=== PATIENT | male | born 1955 | race Hispanic/Latino ===

== ENCOUNTER 2018-07-24 22:58 | Emergency (ER) | payer OTHER ==
[~2018-07-24] VITALS: Ht 167.6 cm; Wt 93.4 kg
[~2018-07-24 22:58] MED LIST: ATORVASTATIN CA20 MG PO; HYDROCHLOROTHIA25 MG PO; LEVAQUIN500 MG PO; QUINAPRIL HCL20 MG PO; TYLENOL WITH C1 EACH PO
--- NOTE | 2018-07-24 23:35 | NUR ---
CIFUENTES INSERTED USING ASEPTIC TECHNIQUE, PATENT, DRAINING CLEAR LIGHT YELLOW URINE. NOTED TO HAVE APPROX 750 CC OUTPUT, CIFUENTES CLAMPED AT THIS TIME. PT REPORTS DECREASED PAIN/PRESSURE. CIFUENTES BAG EMPTIED AT THIS TIME.
[2018-07-24 23:51] LABS: BILIRUBIN,URINE NEGATIVE (NEGATIVE); CLARITY,URINE CLEAR (CLEAR); COLOR,URINE YELLOW (YELLOW); KETONES,URINE NEGATIVE (NEGATIVE); LEUKOCYTE ESTERASE ,URINE NEGATIVE (NEGATIVE); NITRITE,URINE NEGATIVE (NEGATIVE); PROTEIN,URINE DIPSTICK NEGATIVE (NEGATIVE); URINE UROBILINOGEN 0.2 mg/dL (0.2 - 1)
[2018-07-24 23:56] LABS: EPITHELIAL CELLS,URINE RARE /LPF; RBC,URINE 0-5 /HPF (0-5); WBC,URINE (MAN) 0-5 /HPF (0-5)
[2018-07-25 00:25] LABS: BILIRUBIN,URINE NEGATIVE (NEGATIVE); CLARITY,URINE CLEAR (CLEAR); COLOR,URINE YELLOW (YELLOW); KETONES,URINE NEGATIVE (NEGATIVE); LEUKOCYTE ESTERASE ,URINE NEGATIVE (NEGATIVE); NITRITE,URINE NEGATIVE (NEGATIVE); PROTEIN,URINE DIPSTICK NEGATIVE (NEGATIVE); URINE UROBILINOGEN 0.2 mg/dL (0.2 - 1)
[2018-07-25 00:32] LABS: EPITHELIAL CELLS,URINE RARE /LPF; RBC,URINE 0-5 /HPF (0-5); WBC,URINE (MAN) 0-5 /HPF (0-5)
[2018-07-25 00:51] VITALS: BP 139/73
--- NOTE | 2018-07-25 01:25 | NUR ---
DISCHARGE INSTRUCTIONS GIVEN AT THIS TIME WITH RX. PATIENT GIVEN LEG BAG AND WAS TAUGHT HOW TO USE AND CARE FOR, PT DEMONSTRATED USE. EDUCATED ABOUT IMPORTANCE OF FOLLOW UP, VERBALIZED UNDERSTANDING.
== END 2018-07-25 01:30 | disposition home or self-care (01) ==
LOC: ER 22:58
DX: R33.9 Retention of urine, unspecified (principal); N40.1 Benign prostatic hyperplasia with lower urinary tract symptoms; I10 Essential (primary) hypertension; E78.00 Pure hypercholesterolemia, unspecified
CPT/HCPCS: 51700; 81001; 99282

== ENCOUNTER → 2018-08-09 | Outpatient (CLI) | payer OTHER ==
--- NOTE | 2018-08-10 05:27 | Diagnostic Imaging Report ---
EXAMINATION: CT of the abdomen and pelvis without contrast. TECHNIQUE: Spiral CT images of the abdomen and pelvis were performed from the lung bases to the lesser trochanters. No intravenous contrast was given per renal stone protocol. Coronal and sagittal reformatted images were obtained. COMPARISON: CT abdomen with contrast 11/07/2015 CLINICAL HISTORY:Calculus of kidney DISCUSSION: ABSENCE OF INTRAVENOUS CONTRAST DECREASES SENSITIVITY FOR DETECTION OF FOCAL LESIONS AND VASCULAR PATHOLOGY. ABDOMEN/PELVIS: LOWER THORAX: Linear subsegmental atelectasis versus scarring in the lingula. Minimal bilateral lower lobe dependent atelectasis. Atherosclerotic calcification of the coronary arteries. HEPATOBILIARY: Borderline low attenuation of the hepatic parenchyma likely reflecting mild steatosis. No focal lesions. No intra or extrahepatic biliary ductal dilation. GALLBLADDER: Cholecystectomy clips. SPLEEN: No splenomegaly. PANCREAS: No focal masses or ductal dilatation. ADRENALS: No adrenal nodules. KIDNEYS/URETERS: 0.8 cm nonobstructing calculus in the left inferior pole (series 3, image 80). No other renal or any ureteral calculi. No hydronephrosis, hydroureter or evidence of obstruction. No renal contour abnormalities. No significant perinephric stranding. PELVIC ORGANS/BLADDER: Bladder is decompressed and there is a Harris catheter in place. Prostate is unremarkable. PERITONEUM/RETROPERITONEUM: No free air or fluid. LYMPH NODES: No intra-abdominal,retroperitoneal, pelvic or inguinal lymphadenopathy. VESSELS: Atherosclerotic calcification of the abdominal aorta and proximal iliac vessels. GI TRACT: No bowel dilation or evidence of obstruction. No pericolonic inflammatory changes. Descending and sigmoid colon diverticulosis, without diverticulitis. Appendix is well identified and normal in caliber. BONES AND SOFT TISSUES: No aggressive lytic lesions. Multilevel degenerative disc changes in the lumbosacral spine, worse at L2-L3, L3-L4 and L5-S1. Facet hypertrophy L4-L5 and L5-S1. Soft tissues are grossly unremarkable. IMPRESSION: 1. 0.8 cm nonobstructing calculus in the left inferior pole. No other renal or any ureteral calculi, hydronephrosis or obstruction. Signed by: Dr. Elie Astudillo M.D. on 08/10/2018 5:24 AM
== END ==
LOC: CT 16:44
PROVIDERS: ATTEND Urology
DX: N20.0 Calculus of kidney (principal)
CPT/HCPCS: 74176

== ENCOUNTER → 2018-09-14 | Day surgery (SDC) | payer OTHER ==
[2018-09-12 14:33] LABS: ANION GAP 12.7 mmol/L (8-16); BLOOD UREA NITROGEN 13 mg/dL (7-26); BUN/CREATININE RATIO 16 (6-25); CALCIUM 9.7 mg/dL (8.4-10.2); CARBON DIOXIDE 28 mmol/L (22-29); CHLORIDE 100 mmol/L (98-107); CREATININE, SERUM 0.83 mg/dL (0.72-1.25); EST GLOMERULAR FILTRATION RATE > 60 ML/MIN (60-); GLUCOSE 100 mg/dL (74-118); POTASSIUM 3.7 mmol/L (3.5-5.1); SODIUM 137 mmol/L (136-145)
[~2018-09-14] MED LIST changes: +B&O 60MG R/S 60 MG SUPP PR ONE; +DEXAMETHASONE SOD PHOS INJ 4 MG/ML VIAL ONE; +FENTANYL CITRATE/PF 100MCG/2 ML INJ ONE; +FLOMAX0.4 MG PO; +GENTAMICIN 80MG/NS 100 ML 100 ML IV ONE; +IOPAMIDOL 610MG/1ML 300 MG/ML VIAL IV ONE; +LEVOFLOXACIN 500MG/D5W 100ML 100 ML IV ONE; +LIDOCAINE HCL 2% LOCAL INJ 5 ML SDV VIAL INJ ONE; +MIDAZOLAM HCL 2 MG/2 ML VIAL ONE; +ONDANSETRON HCL INJ 2MG/ML 2ML 2 MG/ML VIAL ONE; +PROPOFOL IV EMULSION 10 MG/ML 20 ML VIAL ONE; +SEVOFLURANE INHAL SOLN 250 ML PEN BTL ONE
--- OUTSIDE RECORDS SUMMARY | 2018-09-14 08:33 | XMS REPORT ---
Author Author [facility] Address Unknown Phone Unavailable Care Team Providers Care Investment Advisor Name Role Phone VALDO PACK Unavailable Unavailable Problems This patient has no known problems. Allergies, Adverse Reactions, Alerts This patient has no known allergies or adverse reactions. Medications This patient has no known medications. Results Test Description Test Time Test Comments Text Results Atomic Results Result Comments CT ABDOMEN/PELVIS WO 2018-08-09 22:19:00 [place] [address] Patient Name: CELINE GRADY MR #: [id number] : 1955 Age/Sex: 63/M Req #: [id number] Adm Physician: Ordered by: VALDO PACK MD Report #: [id number] Location: CT Room/Bed: Procedure: [id number] CT/CT ABDOMEN/PELVIS WO Exam Date: 08/09/18 Exam Time: 1720 REPORT STATUS: Signed EXAMINATION: CT of the abdomen and pelvis without con trast. TECHNIQUE: Spiral CT images of the abdomen and pelvis were performed from the lung bases to the lesser trochanters. No intravenous contrast was given per renal stone protocol. Coronal and sagittal reformatted images were obtained. COMPARISON: CT abdomen with contrast 11/07/2015 CLINICAL HISTORY:Calculus of kidney DISCUSSION: ABSENCE OF INTRAVENOUS CONTRAST DECREASES SENSITIVITY FOR DETECTION OF FOCAL LESIONS AND VASCULAR PATHOLOGY. ABDOMEN/PELVIS: LOWER THORAX: Linear subsegmental atelectasis versus scarring in the lingula. Minimal bilateral lower lobe dependent atelectasis. Atherosclerotic calcification of the coronary arteries. HEPATOBILIARY: Borderline low attenuation of the hepatic parenchyma likely reflecting mild steatosis. No focal lesions. No intra or extrahepatic biliary ductal dilation. GALLBLADDER: Cholecystectomy clips. SPLEEN: No splenomegaly. PANCREAS: No focal masses or ductal dilatation. ADR ENALS: No adrenal nodules. KIDNEYS/URETERS: 0.8 cm nonobstructing calculus in the left inferior pole (series 3, image 80). No other renal or any ureteral calculi. No hydronephrosis, hydroureter or evidence of obstruction. No renal contour abnormalities. No significant perinephric stranding. PELVIC ORGANS/BLADDER: Bladder is decompressed and there is a Harris catheter in place. Prostate is unremarkable. PERITONEUM/RETROPERITONEUM: No free air or fluid. LYMPH NODES: No intra-abdominal,retroperitoneal, pelvic or inguinal lymphadenopathy. VESSELS: Atherosclerotic calcification of the abdominal aorta and proximal iliac vessels. GI TRACT: No bowel dilation or evidence of obstruction. No pericolonic inflammatory changes. Descending and sigmoid colon diverticulosis, without diverticulitis. Appendix is well identified and normal in caliber. BONES AND SOFT TISSUES: No aggressive lytic lesions. Multilevel degenerative disc changes in the lumbosacral spine, worse at L2-L3, L3-L4 and L5-S1. Facet hypertrophy L4-L5 and L5-S1. Soft tissues are grossly unremarkable. IMPRESSION: 1. 0.8 cm nonobstructing calculus in the left inferior pole. No other renal or any ureteral calculi, hydronephrosis or obstruction. Signed by: Dr. Hua Astudillo M.D. on 08/10/2018 5:24 AM Dictated By: HUA ASTUDILLO MD 3 Transcribed By: JUNI on 08/10/18523 COPY TO: VALDO PACK MD
[2018-09-14 09:13] LABS: BASOPHILS # (AUTO) 0.1 (0.0-0.1); BASOPHILS % 1.3 % (0.0-1.0); EOSINOPHILS # (AUTO) 0.2 (0.0-0.4); HEMATOCRIT 49.4 % (38.2-49.6); HEMOGLOBIN 17.6 g/dL (14.0-18.0); LYMPHOCYTES # (AUTO) 2.6 (1.0-3.2); LYMPHOCYTES % 57.2 % (18.0-39.1); MEAN CORPUSCULAR HGB CONC 35.6 g/dL (31-35); MONOCYTES # (AUTO) 0.4 (0.2-0.8); MONOCYTES % 9.1 % (4.4-11.3); NEUTROPHILS # (AUTO) 1.3 (2.1-6.9); NEUTROPHILS % 27.2 % (38.7-80.0); PLATELET COUNT 246 x10e3/uL (140-360); RED BLOOD COUNT 5.68 x10e6/uL (4.3-5.7); RED CELL DISTRIBUTION WIDTH 12.3 % (11.7-14.4)
[2018-09-14 09:35] LABS: ALANINE AMINOTRANSFERASE 40 IU/L (0-55); ALBUMIN 3.8 g/dL (3.5-5.0); ALKALINE PHOSPHATASE 70 IU/L (40-150); ANION GAP 11.9 mmol/L (8-16); BLOOD UREA NITROGEN 13 mg/dL (7-26); BUN/CREATININE RATIO 15 (6-25); CALCIUM 9.3 mg/dL (8.4-10.2); CARBON DIOXIDE 28 mmol/L (22-29); CHLORIDE 101 mmol/L (98-107); CREATININE, SERUM 0.89 mg/dL (0.72-1.25); EST GLOMERULAR FILTRATION RATE > 60 ML/MIN (60-); GLUCOSE 123 mg/dL (74-118); POTASSIUM 3.9 mmol/L (3.5-5.1); SODIUM 137 mmol/L (136-145)
--- NOTE | 2018-09-14 11:21 | Diagnostic Imaging Report ---
Abdomen, three views. History: Preoperative. Findings: The intestinal gas pattern is nonobstructive. There no masses or abnormal calcifications. There are clips in the right upper quadrant from a prior cholecystectomy. The osseous structures reveal degenerative changes of the spine. IMPRESSION: No acute abdominal abnormality. Signed by: Dr. Sanya Piña DO on 09/14/2018 11:18 AM
[2018-09-14 11:50] VITALS: BP 114/76
--- NOTE | 2018-10-28 03:43 | Operative Report ---
DATE OF PROCEDURE: 09/14/2018 SURGEON: Wayne Little MD PREOPERATIVE DIAGNOSES: 1. Obstructive benign prostatic hypertrophy. 2. Incomplete bladder emptying. POSTOPERATIVE DIAGNOSES: 1. Obstructive benign prostatic hypertrophy. 2. Incomplete bladder emptying. OPERATIONS PERFORMED: 1. Cystourethroscopy with bilateral ureteral catheterization and retrograde ureteropyelography (separate procedure performed to evaluate the upper tract in light of incomplete bladder emptying). 2. Interpretation of retrograde ureteropyelography. 3. Supervision of fluoroscopy, no radiologist present. 4. Cystourethroscopy with transurethral implantation of four UroLift implants (separate procedure performed for the obstructive BPH). ANESTHESIA: General. COMPLICATIONS: None. CLINICAL SUMMARY: Raymond Stockton is a 63-year-old man with the above preoperative diagnosis. The patient has had a history of urinary retention. He has an 8 mm left lower pole stone and is pending ESWL. He was brought for the above procedure. He is aware of the risks of bleeding, infection, injury to adjacent structures, need for additional procedures and elected to proceed. OPERATIVE PROCEDURE IN DETAIL: Informed consent was verified, Raymond Stockton was properly identified and taken to the operating room, placed on the cystoscopy table in supine position. Anesthesia was uneventfully begun. The patient was then carefully and gently repositioned in the dorsal lithotomy position with all pressure points well padded. His genitalia were prepared and draped in usual sterile fashion. The cystoscope sheath with visual obturator in place was atraumatically inserted into the patient's urethra, it was guided down unremarkably the urethra through the relatively unremarkable sphincteric region into the patient's prostate bed, which was significant for trilobar prostatic hypertrophy with kissing lateral lobes and a ball-valving intravesical median lobe. Panendoscopy of the bladder revealed trabeculations, but no tumors no stones, and no diverticula, normally positioned and configured, ureteral orifices were identified. An 8-Kazakh catheter was used to cannulate each ureter and retrograde ureteral pyelograms were performed. Interpretation of retrograde ureteropyelography contrast was instilled in retrograde fashion bilaterally. There was a stone in the lower pole calyx on the left hand side. This exhibited also filling defect on retrograde injection of contrast. The both ureteral orifices were displaced in a cephalad fashion consistent with a rather large prostate. There was an indentation at the base of the bladder caused by the median lobe of the prostate, which seemed rather prominent. Unobstructed drainage was observed bilaterally fluoroscopically. There was mild fullness of both distal ureters. The bladder was drained. The 20-Kazakh cystoscope was atraumatically placed with visual obturator. We then deployed four UroLift implants. They were deployed anterolaterally, two deployed anterolaterally on either side at 1.5 cm distal to the bladder neck and two were deployed anterolaterally on either side at the level of the verumontanum. This did create a continuous anterior channel which was open. Nevertheless, the patient still has a ball-valving median lobe, but it seems as if the channel we created is anterior to this median lobe and we hope it will improve his urination and possibly avoid the need for transurethral resection of the prostate at this time. Due to the patient's prostatic anatomy, I am fairly convinced that at some point in the future, a proper transurethral resection of the prostate or similar-sized procedure will be required. The patient's bladder was drained. Cystoscope was withdrawn. Belladonna and opium suppository were placed revealing a 40 g prostate that is smooth, nonfluctuant without any nodules. The patient was then uneventfully reversed from anesthesia and taken to recovery room in stable condition. There were no complications to the procedure. He tolerated the procedure well. Explicit postoperative instructions were given and we will follow the patient up in the office at which point in time we will perform uroflowmetry and bladder ultrasonography. At some point, the patient will also require a left ESWL. Wayne Little MD [place]/MODL /[id number]
== END | disposition home or self-care (01) ==
LOC: OR 08:24
PROVIDERS: ATTEND Urology
DX: N40.1 Benign prostatic hyperplasia with lower urinary tract symptoms (principal); N13.8 Other obstructive and reflux uropathy; R39.14 Feeling of incomplete bladder emptying; N20.0 Calculus of kidney; N32.89 Other specified disorders of bladder; Q55.22 Retractile testis; N47.5 Adhesions of prepuce and glans penis; N47.1 Phimosis; N32.81 Overactive bladder; N52.9 Male erectile dysfunction, unspecified; E66.9 Obesity, unspecified; I10 Essential (primary) hypertension; Z01.810 Encounter for preprocedural cardiovascular examination; Z01.812 Encounter for preprocedural laboratory examination; Z68.34 Body mass index [BMI] 34.0-34.9, adult
CPT/HCPCS: 52005; C9740; 36415; 74018; 74420; 80048; 80053; 83970; 84550; 85025; 93005; J1100; J1580; J1956; J2001; J2250; J2405; J3010; L8699

== ENCOUNTER → 2018-09-30 | Day surgery (SDC) | payer OTHER ==
--- NOTE | 2018-09-27 12:43 | Diagnostic Imaging Report ---
Exam: KUB - 2 views Clinical History: Renal calculi Comparison: Abdomen and pelvis CT of 08/09/2018 Findings: Calcific density projecting over the lower pole of the left kidney measures up to 6 mm and corresponds with area of a small stone seen on CT of 08/09/2018. No other renal calculi identified. Nonobstructive bowel gas pattern. Status post cholecystectomy. Degenerative changes of the visualized spine. Impression: Left kidney lower pole 6 mm stone. No other renal calculi identified. Signed by: Christian Hassan MD on 09/27/2018 12:40 PM
[~2018-09-30] MED LIST changes: -B&O 60MG R/S 60 MG SUPP PR ONE; +CEFTRIAXONE SOD 1 GM/NS 50 ML 50 ML IV ONE; +EPHEDRINE SULFATE INJ 50 MG/ML VIAL ONE; -FENTANYL CITRATE/PF 100MCG/2 ML INJ ONE; -GENTAMICIN 80MG/NS 100 ML 100 ML IV ONE; +HYDROMORPHONE 2MG/ML 2 MG/ML ML ONE; -IOPAMIDOL 610MG/1ML 300 MG/ML VIAL IV ONE; -LEVOFLOXACIN 500MG/D5W 100ML 100 ML IV ONE
[2018-09-30 09:00] VITALS: BP 136/81
--- NOTE | 2018-09-30 14:57 | Operative Report ---
DATE OF PROCEDURE: 09/30/2018 SURGEON: Wayne Little MD PREOPERATIVE DIAGNOSIS: Left nephrolithiasis. POSTOPERATIVE DIAGNOSIS: Left nephrolithiasis. OPERATION PERFORMED: 1. Staged left-sided extracorporeal shockwave lithotripsy. 2. Supervision of fluoroscopy, no radiologist present. ANESTHESIA: General. COMPLICATIONS: None. CLINICAL SUMMARY: Mr. Stockton is a 63-year-old man with left nephrolithiasis. He has undergone cystoscopy with retrograde pyelograms and UroLift procedure. He does have a median lobe in place, but despite the median lobe, the patient's urination is significantly improved following the above procedure. He is brought for lithotripsy. He is aware of the risks of bleeding, infection, injury to adjacent structures, need for additional procedures and elected to proceed. OPERATIVE PROCEDURE IN DETAIL: Informed consent was verified. Raymond Stockton was properly identified, taken to the operating room, placed on the lithotripsy table in supine position. Anesthesia was uneventfully begun. The patient's left lower pole nephrolithiasis was localized with biplanar fluoroscopy. A total of 3000 shocks were delivered with excellent fragmentation. The patient was then uneventfully reversed from anesthesia and taken to recovery room in stable condition. There were no complications of the procedure. He tolerated the procedure well. Expressive postop instructions were given. We will follow him up in the office, at which point in time, we will perform uroflowmetry and bladder ultrasonography to evaluate his postoperative result following his UroLift procedure. Wayne Little MD [place]/MODL /[id number]
== END | disposition home or self-care (01) ==
LOC: OR 05:00
PROVIDERS: ATTEND Urology
DX: N20.0 Calculus of kidney (principal); I10 Essential (primary) hypertension; K21.9 Gastro-esophageal reflux disease without esophagitis
CPT/HCPCS: 50590; 74018; J0696; J1100; J1170; J2001; J2250; J2405; J2704

== ENCOUNTER → 2019-01-10 | Outpatient (CLI) | payer OTHER ==
[~2019-01-10] MED LIST changes: -CEFTRIAXONE SOD 1 GM/NS 50 ML 50 ML IV ONE; -DEXAMETHASONE SOD PHOS INJ 4 MG/ML VIAL ONE; -EPHEDRINE SULFATE INJ 50 MG/ML VIAL ONE; -HYDROMORPHONE 2MG/ML 2 MG/ML ML ONE; -LIDOCAINE HCL 2% LOCAL INJ 5 ML SDV VIAL INJ ONE; -MIDAZOLAM HCL 2 MG/2 ML VIAL ONE; -ONDANSETRON HCL INJ 2MG/ML 2ML 2 MG/ML VIAL ONE; -PROPOFOL IV EMULSION 10 MG/ML 20 ML VIAL ONE; -SEVOFLURANE INHAL SOLN 250 ML PEN BTL ONE
--- NOTE | 2019-01-10 10:48 | Diagnostic Imaging Report ---
Exam: KUB - 2 views Indication: Renal calculi Comparison: KUB of 09/27/2018 Findings: Again seen is a left lower pole renal calculus which now measures approximately 5 mm. No other renal calculi identified. Status post cholecystectomy. Nonobstructive bowel gas pattern. No free air. Fiducials in the prostate. Impression: 5 mm left lower pole renal calculus. Signed by: Christian Hassan MD on 01/10/2019 10:45 AM
== END ==
LOC: RAD 09:47
PROVIDERS: ATTEND Urology
DX: N20.0 Calculus of kidney (principal)
CPT/HCPCS: 74018

== ENCOUNTER → 2019-02-01 | Outpatient (CLI) | payer OTHER ==
--- NOTE | 2019-02-01 11:34 | Diagnostic Imaging Report ---
EXAM: CT Abdomen and Pelvis WITHOUT intravenous contrast INDICATION: Renal calculi COMPARISON: KUB of 01/10/2019 TECHNIQUE: Abdomen and pelvis were scanned utilizing a multidetector helical scanner from the lung base to the pubic symphysis without administration of IV contrast. Coronal and sagittal reformations were obtained. IV CONTRAST: None ORAL CONTRAST: Water COMPLICATIONS: None RADIATION DOSE: Total DLP: 746.3 mGy*cm Dose modulation, iterative reconstruction, and/or weight based adjustment of the mA/kV was utilized to reduce the radiation dose to as low as reasonably achievable. FINDINGS: LOWER THORAX: Scattered coronary artery atherosclerotic calcifications. HEPATOBILIARY: Diffuse hepatic steatosis. No focal liver lesion. Status post cholecystectomy. SPLEEN: No splenomegaly. PANCREAS: No focal masses or ductal dilatation. ADRENALS: No adrenal nodules. KIDNEYS/URETERS: 5 mm left lower pole nonobstructive renal calculus. No hydronephrosis or solid mass lesions. PELVIC ORGANS/BLADDER: Radiopaque prostate fiducials PERITONEUM / RETROPERITONEUM: No free air or fluid. LYMPH NODES: No lymphadenopathy. VESSELS: Scattered atherosclerotic calcifications of the nonaneurysmal abdominal aorta and major branches. GI TRACT: Diverticulosis without CT evidence of diverticulitis. No abnormal bowel thickening. No bowel obstruction. BONES AND SOFT TISSUES: No acute osseous injury. No suspicious lytic or blastic lesions. Grade 1 retrolisthesis at L3-4. Degenerative changes of the visualized spine. IMPRESSION: Left lower pole 5 mm nonobstructive renal calculus. No hydronephrosis. Diffuse hepatic steatosis. Scattered atherosclerotic arterial calcifications including of the coronary arteries. Signed by: Christian Hassan MD on 02/01/2019 11:31 AM
== END ==
LOC: CT 09:12
PROVIDERS: ATTEND Urology
DX: N20.0 Calculus of kidney (principal)
CPT/HCPCS: 74176

== ENCOUNTER → 2019-05-31 | Day surgery (SDC) | payer OTHER ==
[2019-05-24 13:43] LABS: ANION GAP 12.5 mmol/L (8-16); BLOOD UREA NITROGEN 13 mg/dL (7-26); BUN/CREATININE RATIO 16 (6-25); CALCIUM 8.9 mg/dL (8.4-10.2); CARBON DIOXIDE 26 mmol/L (22-29); CHLORIDE 102 mmol/L (98-107); CREATININE, SERUM 0.83 mg/dL (0.72-1.25); EST GLOMERULAR FILTRATION RATE > 60 ML/MIN (60-); GLUCOSE 161 mg/dL (74-118); POTASSIUM 3.5 mmol/L (3.5-5.1); SODIUM 137 mmol/L (136-145)
--- NOTE | 2019-05-24 13:51 | Diagnostic Imaging Report ---
EXAM: ABDOMEN-1VIEW (KUB) DATE: 05/24/2019 12:52 PM INDICATION: Preoperative evaluation COMPARISON: CT abdomen/pelvis from 02/01/2019 FINDINGS: Bowel gas pattern appears nonobstructive. There is a 5 mm calcification projecting over the inferior pole of the left renal shadow. No other radiographic abdomen renal calculi are identified. Radiopaque fiducial markers are noted at the level of the prostate. No other abnormal intra-abdominal calcification is appreciated. There are multilevel degenerative changes of the visualized spine. The surrounding soft tissues are unremarkable. IMPRESSION: 5 mm left lower renal calculus, as noted on the prior CT examination. Signed by: Dr. Seth Joe MD on 05/24/2019 1:48 PM
[~2019-05-31] MED LIST changes: +ACETAMINOPHEN 1000 MG/100 ML IV ONE; +B&O 60MG R/S 60 MG SUPP PR ONE; +CEFTRIAXONE SOD 1 GM/NS 50 ML 50 ML IV ONE; +DEXAMETHASONE SOD PHOS INJ 4 MG/ML VIAL ONE; +EPHEDRINE SULFATE INJ 50 MG/ML VIAL ONE; +FENTANYL CITRATE/PF 100MCG/2 ML INJ ONE; +FINASTERIDE5 MG PO; +IOPAMIDOL 300MG/ML 50ML INFUS..BTL IV ONE; +LIDOCAINE HCL 2% LOCAL INJ 5 ML SDV VIAL INJ ONE; +MIDAZOLAM HCL 2 MG/2 ML VIAL ONE; +ONDANSETRON HCL INJ 2MG/ML 2ML 2 MG/ML VIAL ONE; +PROPOFOL IV EMULSION 10 MG/ML 20 ML VIAL ONE; +SEVOFLURANE INHAL SOLN 250 ML PEN BTL ONE
[2019-05-31 09:40] VITALS: BP 122/78
--- NOTE | 2019-05-31 15:13 | Operative Report ---
DATE OF PROCEDURE: 05/31/2019 SURGEON: Wayne Little MD PREOPERATIVE DIAGNOSES: 1. Left nephrolithiasis. 2. Benign prostatic hypertrophy. POSTOPERATIVE DIAGNOSES: 1. Left nephrolithiasis. 2. Benign prostatic hypertrophy. OPERATIONS PERFORMED: 1. Left-sided extracorporeal shockwave lithotripsy (separate staged procedure as part of a multistage process in managing the patient's urolithiasis). 2. Cystourethroscopy with bilateral ureteral catheterization and retrograde ureteropyelography (separate procedure performed to evaluate the lower and upper urinary tract in light of the long-standing benign prostatic hypertrophy). 3. Interpretation of retrograde ureteropyelography. 4. Supervision of fluoroscopy, no radiologist present. ANESTHESIA: General. COMPLICATIONS: None. CLINICAL SUMMARY: Raymond Stockton is a 64-year-old man with prostatism. He has undergone UroLift implant procedure with improvement. The patient has a stone and he is brought for management. He is aware of the risks of bleeding, infection, injury to adjacent structures, need for additional procedures and elected to proceed. OPERATIVE PROCEDURE IN DETAIL: Informed consent was verified. Raymond Stockton was properly identified and taken to the operating room, placed on the lithotripsy table in supine position. Anesthesia was uneventfully begun. The patient's left nephrolithiasis was localized with biplanar fluoroscopy. A total of 3000 shocks were delivered to the lower pole stone with excellent fragmentation. The patient was then carefully gently repositioned in the dorsal lithotomy position with all pressure points well padded. His genitalia were prepared and draped in usual sterile fashion. The 22.5-Kyrgyz cystoscope sheath with visual obturator in place was atraumatically inserted into the patient's urethra and it was guided down to the unremarkable urethra, passed a normal sphincteric region through the prostate bed, which was significant for trilobar prostatic hypertrophy with kissing lateral lobes and a median lobe that was small. Despite all this, there was a continuous anterior channel, albeit small, as a result of the prior UroLift procedure. We entered the patient's bladder. Panendoscopy revealed grade 1 trabeculations, but no tumors, no stones, no diverticula. Normally positioned configured ureteral orifices were identified. We were able to negotiate around median lobe and cannulated both ureteral orifices with an 8-Kyrgyz cone-tipped catheter and retrograde ureteral pyelograms were performed. Interpretation of retrograde ureteropyelography contrast was instilled in retrograde fashion bilaterally. The right side was unremarkable. There were no tumors, no stones, no diverticula, and unobstructed drainage was observed fluoroscopically. The left side exhibited filling defects in the lower pole corresponding to this fragmented stone particles as well as blood clots. There was no hydronephrosis and unobstructed drainage was observed bilaterally fluoroscopically, some J-hooking was noted. The patient's bladder was drained. Cystoscope was withdrawn. Belladonna and opium suppository were placed revealing a 40 g prostate that is smooth, nonfluctuant without any nodules. The patient was then uneventfully reversed from anesthesia and taken to recovery in stable condition. There were no complications to procedure. He tolerated the procedure well. PLANS: Plans will be to follow the patient up in the office. Metabolic stone workup will be performed and followed up. The patient at some point in the future may require transurethral resection of the prostate for his prostatism. Wayne MD Anabel [place]/MODL /[id number] cc: Elie Hayes MD
== END | disposition home or self-care (01) ==
LOC: OR 05:21
PROVIDERS: ATTEND Urology
DX: N20.0 Calculus of kidney (principal); N40.1 Benign prostatic hyperplasia with lower urinary tract symptoms; R33.8 Other retention of urine; R39.14 Feeling of incomplete bladder emptying; N52.9 Male erectile dysfunction, unspecified; E66.9 Obesity, unspecified; N47.5 Adhesions of prepuce and glans penis; N47.1 Phimosis; N32.81 Overactive bladder; I10 Essential (primary) hypertension; E78.00 Pure hypercholesterolemia, unspecified; K21.9 Gastro-esophageal reflux disease without esophagitis; Z68.34 Body mass index [BMI] 34.0-34.9, adult; Z01.810 Encounter for preprocedural cardiovascular examination; Z01.812 Encounter for preprocedural laboratory examination; Z01.818 Encounter for other preprocedural examination
CPT/HCPCS: 36415; 50590; 52005; 74018; 74420; 80048; 93005; C1758; J0131; J0696; J1100; J2001; J2250; J2405; J2704; J3010; Q9967

== ENCOUNTER → 2019-08-14 | Outpatient (CLI) | payer OTHER ==
[~2019-08-14] MED LIST changes: -ACETAMINOPHEN 1000 MG/100 ML IV ONE; -B&O 60MG R/S 60 MG SUPP PR ONE; -CEFTRIAXONE SOD 1 GM/NS 50 ML 50 ML IV ONE; -DEXAMETHASONE SOD PHOS INJ 4 MG/ML VIAL ONE; -EPHEDRINE SULFATE INJ 50 MG/ML VIAL ONE; -FENTANYL CITRATE/PF 100MCG/2 ML INJ ONE; -IOPAMIDOL 300MG/ML 50ML INFUS..BTL IV ONE; -LIDOCAINE HCL 2% LOCAL INJ 5 ML SDV VIAL INJ ONE; -MIDAZOLAM HCL 2 MG/2 ML VIAL ONE; -ONDANSETRON HCL INJ 2MG/ML 2ML 2 MG/ML VIAL ONE; -PROPOFOL IV EMULSION 10 MG/ML 20 ML VIAL ONE; -SEVOFLURANE INHAL SOLN 250 ML PEN BTL ONE
--- NOTE | 2019-08-14 11:06 | Diagnostic Imaging Report ---
Abdomen, 1 view. History: Renal calculus. Comparison: 05/24/2019. Findings: Air is scattered throughout nondilated small and large bowel. 5 mm calcification is again seen projected over the lower pole of the left kidney. Post cystectomy clips are present in the right upper quadrant. Metallic markers are noted within the prostate. The osseous structures are intact. IMPRESSION: Left renal calculus without change. Signed by: Antoine Crawford on 08/14/2019 11:03 AM
== END ==
LOC: RAD 10:09
PROVIDERS: ATTEND Urology
DX: N20.0 Calculus of kidney (principal)
CPT/HCPCS: 74018

== ENCOUNTER → 2020-01-05 | Day surgery (SDC) | payer OTHER ==
[2020-01-02 10:31] LABS: BLOOD UREA NITROGEN 13 mg/dL (7-26); BUN/CREATININE RATIO 14 (6-25); CALCIUM 9.3 mg/dL (8.4-10.2); CARBON DIOXIDE 27 mmol/L (22-29); CHLORIDE 102 mmol/L (98-107); EST GLOMERULAR FILTRATION RATE > 60 ML/MIN (60-); GLUCOSE 107 mg/dL (74-118); SODIUM 137 mmol/L (136-145)
--- NOTE | 2020-01-02 11:04 | Diagnostic Imaging Report ---
Abdomen, 1 view. History: Renal calculus. Preop for surgery Comparison: 08/14/2019. 05/24/2019. Findings: Air is scattered throughout nondilated small and large bowel. 5 mm calcification is again seen projected over the lower pole of the left kidney. Cholecystectomy clips are present in the right upper quadrant. Metallic markers are noted within the prostate. The osseous structures are intact. IMPRESSION: Left renal calculus without change. Signed by: Dr. Damien Martinez M.D. on 01/02/2020 11:01 AM
[~2020-01-05] MED LIST changes: +B&O 60MG R/S 60 MG SUPP PR ONE; +CEFTRIAXONE SOD 1 GM/NS 50 ML 50 ML IV ONE; +DEXAMETHASONE SOD PHOS INJ 4 MG/ML VIAL ONE; +EPHEDRINE SULFATE INJ 50 MG/ML VIAL ONE; +FENTANYL CITRATE/PF 100MCG/2 ML INJ ONE; +IOPAMIDOL 300MG/ML 50ML INFUS..BTL IV ONE; +LIDOCAINE HCL 2% LOCAL INJ 5 ML SDV VIAL INJ ONE; +METFORMIN HCL500 MG PO; +MIDAZOLAM HCL 2 MG/2 ML VIAL ONE; +ONDANSETRON HCL INJ 2MG/ML 2ML 2 MG/ML VIAL ONE; +PROPOFOL IV EMULSION 10 MG/ML 20 ML VIAL ONE; +SEVOFLURANE INHAL SOLN 250 ML PEN BTL ONE
[2020-01-05 12:08] VITALS: BP 147/78
--- NOTE | 2020-01-06 00:09 | Operative Report ---
DATE OF PROCEDURE: 01/05/2020 SURGEON: Wayne Little MD PREOPERATIVE DIAGNOSIS: Left nephrolithiasis. POSTOPERATIVE DIAGNOSIS: Left nephrolithiasis. OPERATION PERFORMED: 1. Staged left-sided extracorporeal shockwave lithotripsy. 2. Supervision of fluoroscopy, no radiologist present. ANESTHESIA: General. COMPLICATIONS: None. CLINICAL SUMMARY: Raymond Stockton is a 64-year-old man with persistent urolithiasis. He also has BPH and is pending transurethral resection of the prostate with cystoscopy and retrograde pyelograms. He is brought to the operating room to manage his stone. He is aware of the risks of bleeding, infection, injury to adjacent structures, need for additional procedures, and elected to proceed. OPERATIVE PROCEDURE IN DETAIL: Informed consent was verified. Raymond Stockton was properly identified, taken to the operating room, placed on the lithotripsy table in supine position. Anesthesia was uneventfully begun. The patient's left nephrolithiasis was localized with biplanar fluoroscopy. A total of 3000 shocks were delivered with fragmentation noted. The patient was then uneventfully reversed from anesthesia and taken to recovery room in stable condition. There were no complications the procedure. He tolerated the procedure well. Explicit postop instructions were given. We will plan on returning the patient to the operating room for cystoscopy with transurethral resection of prostate and retrograde pyelograms. Wayne Little MD [place]/MODL /[id number]
== END | disposition home or self-care (01) ==
LOC: OR 07:39
PROVIDERS: ATTEND Urology
DX: N20.0 Calculus of kidney (principal); N40.0 Benign prostatic hyperplasia without lower urinary tract symptoms; E11.9 Type 2 diabetes mellitus without complications; I10 Essential (primary) hypertension; E78.5 Hyperlipidemia, unspecified; K21.9 Gastro-esophageal reflux disease without esophagitis; Z01.810 Encounter for preprocedural cardiovascular examination; Z01.812 Encounter for preprocedural laboratory examination; Z01.818 Encounter for other preprocedural examination; Z11.59 Encounter for screening for other viral diseases; Z79.84 Long term (current) use of oral hypoglycemic drugs
CPT/HCPCS: 36415 ×2; 50590; 74018; 80048; 82948; 93005; J0696; J1100; J2001; J2250; J2405; J2704; J3010; U0002

== ENCOUNTER 2020-01-15 05:34 | Inpatient (IN) | payer OTHER ==
[2020-01-11 14:55] LABS: BASOPHILS # (AUTO) 0.1 (0.0-0.1); BASOPHILS % 0.9 % (0.0-1.0); EOSINOPHILS # (AUTO) 0.1 (0.0-0.4); EOSINOPHILS % 2.6 % (0.0-6.0); HEMOGLOBIN 15.8 g/dL (14.0-18.0); LYMPHOCYTES # (AUTO) 3.1 (1.0-3.2); LYMPHOCYTES % 56.6 % (18.0-39.1); MEAN CORPUSCULAR HEMOGLOBIN 31.2 pg (28-32); MEAN CORPUSCULAR HGB CONC 34.3 g/dL (31-35); MEAN CORPUSCULAR VOLUME 90.7 fL (81-99); MONOCYTES # (AUTO) 0.5 (0.2-0.8); MONOCYTES % 8.4 % (4.4-11.3); NEUTROPHILS # (AUTO) 1.7 (2.1-6.9); NEUTROPHILS % 31.1 % (38.7-80.0); PLATELET COUNT 250 x10e3/uL (140-360); RED BLOOD COUNT 5.07 x10e6/uL (4.3-5.7); RED CELL DISTRIBUTION WIDTH 12.1 % (11.7-14.4)
[2020-01-11 15:17] LABS: ANION GAP 13.5 mmol/L (8-16); BLOOD UREA NITROGEN 14 mg/dL (7-26); BUN/CREATININE RATIO 16 (6-25); CALCIUM 9.2 mg/dL (8.4-10.2); CARBON DIOXIDE 27 mmol/L (22-29); CHLORIDE 102 mmol/L (98-107); CREATININE, SERUM 0.88 mg/dL (0.72-1.25); EST GLOMERULAR FILTRATION RATE > 60 ML/MIN (60-); GLUCOSE 161 mg/dL (74-118); POTASSIUM 3.5 mmol/L (3.5-5.1); SODIUM 139 mmol/L (136-145)
[~2020-01-15] VITALS: Ht 165.1 cm; Wt 88.0 kg
[~2020-01-15 05:34] MED LIST changes: -B&O 60MG R/S 60 MG SUPP PR ONE; -CEFTRIAXONE SOD 1 GM/NS 50 ML 50 ML IV ONE; -DEXAMETHASONE SOD PHOS INJ 4 MG/ML VIAL ONE; -EPHEDRINE SULFATE INJ 50 MG/ML VIAL ONE; -FENTANYL CITRATE/PF 100MCG/2 ML INJ ONE; -IOPAMIDOL 300MG/ML 50ML INFUS..BTL IV ONE; -LIDOCAINE HCL 2% LOCAL INJ 5 ML SDV VIAL INJ ONE; -MIDAZOLAM HCL 2 MG/2 ML VIAL ONE; -ONDANSETRON HCL INJ 2MG/ML 2ML 2 MG/ML VIAL ONE; -PROPOFOL IV EMULSION 10 MG/ML 20 ML VIAL ONE; -SEVOFLURANE INHAL SOLN 250 ML PEN BTL ONE
[2020-01-15] MEDS ORDERED: CEFTRIAXONE SOD 1 GM/NS 50 ML 50 ML IV ONE (06:19)
[2020-01-15] MEDS ORDERED: GENTAMICIN 80MG/NS 100 ML 200 ML IV ONE (06:19)
[2020-01-15] MEDS ORDERED: B&O 60MG R/S 60 MG SUPP PR ONE (06:34)
[2020-01-15] MEDS ORDERED: IOPAMIDOL 300MG/ML 50ML INFUS..BTL IV ONE (06:34)
[2020-01-15] MEDS ORDERED: SODIUM CHLORIDE 0.9% 1000ML 1,000 ML ONE (06:36)
[2020-01-15] MEDS ORDERED: DIPHENHYDRAMINE HCL 25 MG CAP PO PRN (09:00)
[2020-01-15] MEDS ORDERED: ONDANSETRON HCL INJ 2MG/ML 2ML 2 MG/ML VIAL IV PRN ×2 (09:00→22:00)
[2020-01-15] MEDS ORDERED: B&O 60MG R/S 60 MG SUPP PR PRN (09:00)
[2020-01-15] MEDS ORDERED: ACETAMINOPHEN/CODEINE 300MG - 30MG TAB PO PRN (09:00)
--- OUTSIDE RECORDS SUMMARY | 2020-01-15 09:30 | XMS REPORT | Continuity of Care Document ---
Author Author [facility] t Organization [facility] Address [address] [place] [address] Phone Unavailable Care Team Providers Care Product Sales Engineer Name Role Phone NONSTAFF PCP Unavailable HAMPEL, VALDO Attphys Unavailable Payers Payer Name Policy Type Policy Number Effective Date Expiration Date [employer] [id number] [facility] Problems Condition Name Condition Details Condition Category Status Onset Date Resolution Date Last Treatment Date Treating Clinician Comments Source Alcohol-induced acute pancreatitis Acute alcoholic pancreatitis Pro blem Active 2015-11-02 00:00:00 [facility] Duodenitis Duodenitis Problem Active 2015-11-02 00:00:00 [facility] Allergies, Adverse Reactions, Alerts This patient has no known allergies or adverse reactions. Medications Ordered Medication Name Filled Medication Name Start Date Stop Da te Current Medication? Ordering Clinician Indication Dosage Frequency Signature (SIG) Comments Components Source Atorvastatin Calcium 20 Mg Tablet Atorvastatin Calcium 20 Mg Tablet Yes 20 Today At 9:00PM [facility] Hydrochlorothiazide 25 Mg Tablet Hydrochlorothiazide 25 Mg Tablet Yes 12.5 Daily [facility] Quinapril Hcl 20 Mg Tablet Quinapril Hcl 20 Mg Tablet Yes 40 Daily [facility] Acetaminophen With Codeine (Tylenol With Codeine #3 Tablet) 1 Each Tablet, 300 Mg Oral Acetaminophen With Codeine (Tylenol With Codeine #3 Tablet) 1 Each Tablet, 300 Mg Oral 2016-03-04 00:00:00 No 300 Ever y 4 Hours [facility] Levofloxacin (Levaquin) 500 Mg Tablet, 500 Mg Oral Lev ofloxacin (Levaquin) 500 Mg Tablet, 500 Mg Oral 2016-03-04 00:00:00 No 500 D aily [facility] Procedures This patient has no known procedures. Encounters Start Date/Time End Date/Time Encounter Type Admission Type [facility] Care Department Encounter ID Source 2018-07-24 22:58:00 2018-07-25 01:30:00 Departed Emergency Room [facility] [id number] [facility] Results Test Description Test Time Test Comments Results Result Comments Source ABDOMEN-1VIEW (KUB) 2020-01-02 10:59:00 [facility] [address] [address] Patient Name: CELINE GRADY MR #: [id number] : 1955 Age/Sex: 64/M Req #: [id number] Adm Physician: Ordered by: VALDO PACK MD Report #: [id number] Location: OR Room/Bed: Procedure: [id number] DX/ABDOMEN-1VIEW (KUB) Exam Date: 01/02/20 Exam Time: 1000 REPORT STATUS: Signed Abdomen, 1 view. History: Renal calculus. Preop for surgery Comparison: 08/14/2019. 05/24/2019. Findings: Air is scattered throughout nondilated small and large bowel. 5 mm calcification is again seen projected over the lower pole of the left kid kathy. Cholecystectomy clips are present in the right upper quadrant. Metallic markers are noted within the prostate. The osseous structures are intact. IMPRESSION: Left renal calculus without change. Signed by: Dr. Damien Martinez M.D. on 01/02/2020 11:01 AM Dictated By: DAMIEN MARTINEZ MD, MD 110 Transcribed By: JUNI on 01/02/201100 COPY TO: VALDO PACK MD ABDOMEN-1VIEW (KUB) 2019-08-14 11:01:[address] [address] Patient Name: CELINE GRADY MR #: [id number] : 1955 Age/Sex: 64/M Req #: [id number] Adm Physician: Ordered by: VALDO PACK MD Report #: [id number] Location: [facility] Room/Bed: Procedure: [id number] DX/ABDOMEN-1VIEW (KUB) Exam Date: 08/14/19 Exam Time: 1036 REPORT STATUS: Signed Abdomen, 1 view. History: Renal calculus. Comparison: 05/24/2019. Findings: Air is scattered throughout nondilated small and large bowel. 5 mm calcification is again seen projected over the lower pole of the left kidney. Post cystectomy clips are present in the right upper quadrant. Metallic markers are noted within the prostate. The osseous structures are intact. IMPRESSION: Left renal calculus without change. Signed by: Antoine Crawford on 08/14/2019 11:03 AM Dictated By: ANTOINE CRAWFORD MD 110 Transcribed By: JUNI on 08/14/19 1103 COPY TO: VALDO PACK MD ABDOMEN-1VIEW (KUB) 2019-05-24 13:46:00 [address] [address] Patient Name: CELINE GRADY MR #: [id number] : 1955 Age/Sex: 64/M Req #: [id number] Adm Physician: Ordered by: VALDO PACK MD Report #: [id number] Location: OR Room/Bed: Procedure: [id number] DX/ABDOMEN-1VIEW (KUB) Exam Date: 05/24/19 Exam Time: 1325 REPORT STATUS: Signed EXAM: ABDOMEN-1VIEW (KUB) DATE: 05/24/2019 12:52 PM INDICATION: Preoperative evaluation COMPARISON: CT abdomen/pelvis from 02/01/2019 FINDINGS: Bowel gas pattern appears nonobstructive. There is a 5 mm calcification projecting over the inferior pole of the left renal shadow. No other radiographic abdomen renal calculi are identified. Radiopaque fiducial markers are noted at the level of the prostate. No other abnormal intra-abdominal calcification is appreciated. There are multilevel degenerative changes of the visualized spine. The surrounding soft tissues are unremarkable. IMPRESSION: 5 mm left l ower renal calculus, as noted on the prior CT examination. Signed by: Dr. Seth Joe MD on 05/24/2019 1:48 PM Dictated By: SETH JOE MD 1348 Transcribed By: JUNI on 05/24/19 1348 COPY TO: VALDO PACK MD CT ABDOMEN/PELVIS WO 2019-02-01 11:26:00 [address] [address] Patient Name: CELINE GRADY MR #: [id number] : 1955 Age/Sex: 63/M Req #: [id number] Adm Physician: Ordered by: VALDO PACK MD Report #: [id number] Location: CT Room/Bed: Procedure: [id number] CT/CT ABDOMEN/PELVIS WO Exam Date: 02/01/19 Exam Time: 0940 REPORT STATUS: Signed EXAM: CT Abdomen and Pelvis WITHOUT intravenous contrast INDICATION: Renal calculi COMPARISON: KUB of 01/10/2019 TECHNIQUE: Abdomen and pelvis were scanned utilizing a multidetector helical scanner from the lung base to the pubic symphysis without administration of IV contrast. Coronal and sagittal reformations were obtained. IV CONTRAST: None ORAL CONTRAST: Water COMPLICATIONS: None RADIATION DOSE: Total DLP: 746.3 mGy*cm Dose modulation, iterative reconstruction, and/or weight based adjustment of the mA/kV was utilized to reduce the radiation dose to as low as reasonably achievable. FINDINGS: LOWER THORAX: Scattered coronary artery atherosclerotic calcifications. HEPATOBILIARY: Diffuse hepatic steatosis. No focal liver lesion. Status post cholecystectomy. SPLEEN: No splenomegaly. PANCREAS: No focal masses or ductal dilatation. ADRENALS: No adrenal nodules. KIDNEYS/URETERS: 5 mm left lower pole nonobstructive renal calculus. No hydronephrosis or solid mass lesions. PELVIC ORGANS/BLADDER: Radiopaque prostate fiducials PERITONEUM / RETROPERITONEUM: No free air or fluid. LYMPH NODES: No lymphadenopathy. VESSELS: Scattered atherosclerotic calcifications of the nonaneurysmal abdominal aorta and major branches. GI TRACT: Diverticulosis without CT evidence of diverticulitis. No abnormal bowel thickening. No bowel obstruction. BONES AND SOFT TISSUES: No acute osseous injury. No suspicious lytic or blastic lesions. Grade 1 retrolisthesis at L3-4. Degenerative changes of the visualized spine. IMPRESSION: Left lower pole 5 mm nonobstructive renal calculus. No hydronephrosis. Diffuse hepatic steatosis. Scattered atherosclerotic arterial calcifications including of the coronary arteries. Signed by: Jabari Hernandez MD on 02/01/2019 11:31 AM Dictated By: JABARI HERNANDEZ MD 1131 Transcribed By: JUNI on 02/01/191 COPY TO: VALDO PACK MD ABDOMEN-1VIEW (KUB) 2019-01-10 10:43:00 [address] [address] Patient Name: CELINE GRADY MR #: [id number] : 1955 Age/Sex: 63/M Req #: [id number] Adm Physician: Ordered by: VALDO PACK MD Report #: [id number] Location: [facility] Room/Bed: Procedure: [id number] DX/ABDOMEN-1VIEW (KUB) Exam Date: 01/10/19 Exam Time: 0950 REPORT STATUS: Signed Exam: KUB - 2 views Indication: Renal calculi Comparison: KUB of 09/27/2018 Findings: Again seen is a left lower pole renal calculus which now measures approximately 5 mm. No other renal calculi identified. Status post cholecystectomy. Nonobstructive bowel gas pattern. No free air. Fiducials in the prostate. Impression: 5 mm left lower pole renal calculus. Signed by: Jabari Hernandez MD on 01/10/2019 10:45 AM Dictated By: JABARI HERNANDEZ MD 104 Transcribed By: JUNI on 01/10/19 104 COPY TO: VALDO PACK MD ABDOMEN-1VIEW (KUB) 2018-09-27 12:37:00 [address] [address] Patient Name: CELINE GRADY MR #: [id number] : 1955 Age/Sex: 63/M Req #: [id number] Adm Physician: Ordered by: VALDO PACK MD Report #: [id number] Location: OR Room/Bed: Procedure: [id number] DX/ABDOMEN-1VIEW (KUB) Exam Date: 09/27/18 Exam Time: 1135 REPORT STATUS: Signed Exam: KUB - 2 views Clinical History: Renal calculi Comparison: Abdomen and pelvis CT of 08/09/2018 Findings: Calcific density projecting over the lower pole of the left kidney measures up to 6 mm and corresponds with area of a small stone seen on CT of 08/09/2018. No other renal calculi identified. Nonobstructive bowel gas pattern. Status post cholecystectomy. Degenerative changes of the visualized spine. Impression: Left kidney lower pole 6 mm stone. No other renal calculi identified. Signed by: Jabari Hernandez MD on 09/27/2018 12:40 PM Dictated By: JABARI HERNANDEZ MD 1240 Transcribed By: JUNI on 09/27/18 1240 COPY TO: VALDO PACK MD ABDOMEN-1VIEW (KUB) 2018-09-14 11:16:00 [address] [address] Patient Name: CELINE GRADY MR #: [id number] : 1955 Age/Sex: 63/M Req #: [id number] Adm Physician: Ordered by: VALDO PACK MD Report #: [id number] Location: OR Room/Bed: Procedure: [id number] DX/ABDOMEN-1VIEW (KUB) Exam Date: 09/14/18 Exam Time: 914 REPORT STATUS: Signed Abdomen, three views. History: Preoperative. Findings: The intestinal gas pattern is nonobstructive. There no masses or abnormal calcifications. There are clips in the right upper quadrant from a prior cholecystectomy. The osseous structures reveal degenerative changes of the spine. IMPRESSION: No acute abdominal abnormality. Signed by: Dr. Ricardo Piña DO on 09/14/2018 11:18 AM Dictated By: RICARDO PIÑA DO 1118 Transcribed By: JUNI on 09/14/18 1118 COPY TO: VALDO PACK MD CT ABDOMEN/PELVIS WO 2018-08-09 22:19:00 [address] [address] Patient Name: CELINE GRADY MR #: [id number] : 1955 Age/Sex: 63/M Req #: [id number] Adm Physician: Ordered by: VALDO PACK MD Report #: [id number] Location: CT Room/Bed: Procedure: [id number] CT/CT ABDOMEN/PELVIS WO Exam Date: 08/09/18 Exam Time: 1720 REPORT STATUS: Signed EXAMINATION: CT of the abdomen and pelvis without contrast. TECHNIQUE: Spiral CT images of the abdomen [...] PANCREAS: No focal masses or ductal dilatation. ADRENALS: No adrenal nodules. KIDNEYS/URETERS: 0.8 cm nonobstructing [...] on 08/10/18523 COPY TO: VALDO PACK MD Urine WBC 2018-07-25 00:32:00 Test Item Urine WBC (test code = 5821-4) 0-5 0-5 [facility] [id number] 00:32:00* Test Item Value Reference Range Interpretation Comments Urine RBC (test code = 19437-8) 0-5 0-5 [facility] Ackffmvs5726-30-03 00:32:00* Test Item Value Reference Range Interpretation Comments Urine Bacteria (test code = 03291-0) NONE NONE [facility] Epithelial [id number] 00:32:00 * Test Item Value Reference Range Interpretation Comments Urine Epithelial Cells (test code = 63310-4) RARE NONE [facility] [id number] 00:26:00* Test Item Value Reference Range Interpretation Comments Urine Color (test code = 5778-6) YELLOW YELLOW [facility] Rosvuqf9070-67-21 00:26:00* Test Item Value Reference Range Interpretation Comments Urine Clarity (test code = 54944-3) CLEAR CLEAR [facility] Specific Zjfmiea0293-59-44 00:26:00 * Test Item Value Reference Range Interpretation Comments Urine Specific [place] (test code = 5811-5) 1.005 1.010-1.02 5 L [facility] [id number] 00:26:00* Test Item Value Reference Range Interpretation Comments Urine pH (test code = 47015-4) 5 5-7 [facility] Leukocyte Kvwraglr0642-15-43 00:26:00* Test Item Value Reference Range Interpretation Comments Urine Leukocyte Esterase (test code = 5799-2) NEGATIVE NEGATIVE [facility] Mpdzxcm4634-52-12 00:26:00* Test Item Value Reference Range Interpretation Comments Urine Nitrite (test code = 49587-1) NEGATIVE NEGATIVE [facility] [id number] 00:26:00* Test Item Value Reference Range Interpretation Comments Urine Protein (test code = 5804-0) NEGATIVE NEGATIVE [facility] Glucose (UA)2018-07-25 00:26:00* Test Item Value Reference Range Interpretation Comments Urine Glucose (UA) (test code = 2349-9) NEGATIVE NEGATIVE [facility] Owwkhkb3747-54-48 00:26:00* Test Item Value Reference Range Interpretation Comments Urine Ketones (test code = 53927-3) NEGATIVE NEGATIVE [facility] Ejhuebymsegc7445-64-17 00:26:00* Test Item Value Reference Range Interpretation Comments Urine Urobilinogen (test code = 68003-5) 0.2 0.2-1 [facility] Iakdwwfll1445-85-19 00:26:00* Test Item Value Reference Range Interpretation Comments Urine Bilirubin (test code = 1978-6) NEGATIVE NEGATIVE [facility] Rvchk8909-64-14 00:26:00* Test Item Value Reference Range Interpretation Comments Urine Blood (test code = 28274-0) 1+ NEGATIVE H [facility]
[2020-01-15 10:12] VITALS: BP 142/79
[2020-01-15 10:17] VITALS: BP 142/79
--- NOTE | 2020-01-15 10:30 | NUR ---
Patient report called from PACU at 0944 from [facility]. Patient arrived to unit at 1000. Patient AOx3, assessed, IV C/D/I in right forearm 20g. Patient has a [address] in [address] and it has 4 continous bags going. Patient was oriented to room, procedures, and plan of care. Patient verbalized understanding. Patient has no issues or needs at this time.
[2020-01-15] MEDS: DOCUSATE SODIUM 100 MG CAP PO SCH ×2 (11:15→16:08)
[2020-01-15] MEDS: SOD CHL 0.45%/POT CHL 20MEQ 1,000 ML IV SCH ×2 (11:15→19:04)
[2020-01-15] MEDS ORDERED: FENTANYL CITRATE/PF 100MCG/2 ML INJ ONE (12:42)
[2020-01-15] MEDS ORDERED: MIDAZOLAM HCL 2 MG/2 ML VIAL ONE (12:42)
[2020-01-15 12:58] LABS: BASOPHILS % 0.2 % (0.0-1.0); EOSINOPHILS % 0.2 % (0.0-6.0); HEMATOCRIT 46.3 % (38.2-49.6); HEMOGLOBIN 15.9 g/dL (14.0-18.0); LYMPHOCYTES # (AUTO) 1.1 (1.0-3.2); LYMPHOCYTES % 21.6 % (18.0-39.1); MEAN CORPUSCULAR HEMOGLOBIN 31.2 pg (28-32); MEAN CORPUSCULAR HGB CONC 34.3 g/dL (31-35); MEAN CORPUSCULAR VOLUME 90.8 fL (81-99); MONOCYTES # (AUTO) 0.1 (0.2-0.8); MONOCYTES % 1.4 % (4.4-11.3); NEUTROPHILS # (AUTO) 3.7 (2.1-6.9); NEUTROPHILS % 76.4 % (38.7-80.0); PLATELET COUNT 235 x10e3/uL (140-360); RED CELL DISTRIBUTION WIDTH 12.1 % (11.7-14.4)
[2020-01-15] MEDS ORDERED: SEVOFLURANE INHAL SOLN 250 ML PEN BTL ONE (13:02)
[2020-01-15] MEDS ORDERED: DEXAMETHASONE SOD PHOS INJ 4 MG/ML VIAL ONE (13:02)
[2020-01-15] MEDS ORDERED: PROPOFOL IV EMULSION 10 MG/ML 20 ML VIAL ONE (13:02)
[2020-01-15] MEDS ORDERED: ONDANSETRON HCL INJ 2MG/ML 2ML 2 MG/ML VIAL ONE (13:02)
[2020-01-15] MEDS ORDERED: LIDOCAINE HCL 2% LOCAL INJ 5 ML SDV VIAL INJ ONE (13:02)
[2020-01-15 13:20] LABS: ANION GAP 13.2 mmol/L (8-16); BLOOD UREA NITROGEN 13 mg/dL (7-26); BUN/CREATININE RATIO 14 (6-25); CALCIUM 8.4 mg/dL (8.4-10.2); CARBON DIOXIDE 23 mmol/L (22-29); CHLORIDE 105 mmol/L (98-107); CREATININE, SERUM 0.96 mg/dL (0.72-1.25); EST GLOMERULAR FILTRATION RATE > 60 ML/MIN (60-); GLUCOSE 202 mg/dL (74-118); POTASSIUM 4.2 mmol/L (3.5-5.1); SODIUM 137 mmol/L (136-145)
[2020-01-15 17:37] VITALS: BP 134/70
--- NOTE | 2020-01-15 19:00 | NUR ---
RECEIVED PATIENT IN BEDSIDE SHIFT REPORT. PATIENT RESTING IN BED AT THIS TIME. A&OX4. NO PAIN REPORTED. NO S&S OF DISTRESS NOTED. IV TO R FA20G RUNNING D51/2PA68HXK @ 125ML/HR, ASYMPTOMATIC. SCDS ON AND ACTIVE. CBI RUNNING, URINE PINK, NO CLOTS NOTED. PATIENT VERBALIZED THAT HE IS USING HIS I.S. OFTEN, REACHING 2500. PATIENT VERBALIZED UNDERSTANDING TO CALL FOR ASSISTANCE TO GET OUT OF BED. BED LOCKED IN LOWEST POSITION, SIDE RAILS UPX2, CALL LIGHT IN REACH. Addendum: 01/16/20 at 0401 by Zuleima Madden RN FLUID RUNNING TO IV IS 1/4OD56IAJ, NOT D51/5FU02SLW
[2020-01-15 20:26] VITALS: BP 128/67
[2020-01-15 20:28] VITALS: BP 128/69
[2020-01-15] MEDS ORDERED: DEXTROSE 50% SYRINGE 50 ML IV PRN (22:00)
--- NOTE | 2020-01-15 22:33 | History and Physical ---
CONCRETE PANEL INSTALLER: Dr. Wayne Little. The patient is status post cystoscopy with TURP procedures. HISTORY OF PRESENT ILLNESS: The patient is a 64-year-old male with recurrent kidney stone. The patient is status post recently left shockwave lithotripsy and also at baseline, the patient has enlarged prostate, hypertension, dyslipidemia, diabetes type 2, and carpal tunnel syndrome. The patient is now status post TURP. He is on continuous urinary bladder irrigation. The patient is otherwise stable. Hematuria improving. The patient with pain. He is on postoperative care. PAST MEDICAL HISTORY: Hypertension, dyslipidemia, and diabetes type 2. PAST SURGICAL HISTORY: Cholecystectomy, carpal tunnel surgery, left lithotripsy by shockwave, and status post TURP. SOCIAL HISTORY: The patient does not smoke or use alcohol. No regular drug. ALLERGIES: NO KNOWN ALLERGIES. HOME MEDICATIONS: The patient is on Lipitor, finasteride, HCTZ, metformin, quinapril, and Flomax. PHYSICAL EXAMINATION: VITAL SIGNS: Temperature is 99, blood pressure 134/70, pulse rate 73, and respirations 18. GENERAL: The patient is not in acute distress. HEENT: Normocephalic and atraumatic. He is anicteric. NECK: Supple grossly. PULMONARY: Diminished breath sounds. CARDIOVASCULAR: S1 and S2. Regular rate and rhythm. ABDOMEN: Soft. Status post TURP. Harris catheter in place. Continuous irrigation. EXTREMITIES: No cyanosis or edema. NEUROLOGIC: No gross focal deficit. LABORATORY DATA: Sodium is 139, potassium 3.5, chloride 102, bicarb 27, BUN 14, creatinine 0.8, and glucose is 161. Calcium is 9.2. WBC is 5.5, hemoglobin 15.8, hematocrit 46, and platelet is 250. IMPRESSION: 1. Status post cystoscopy with transurethral resection of the prostate. 2. Gross hematuria. 3. Urinary retention. 4. Enlarged prostate. 5. Baseline diabetes type 2. 6. Hypertension. 7. Dyslipidemia. PLAN: Continue with postoperative care. Insulin sliding scale coverage. Pain control. IV fluids. Replace electrolytes if needed. We will monitor the patient closely and adjust his medication. Home medication will be reviewed and resume. MD MARY LOU Reyes/MODL /[id number]
[2020-01-16] VITALS (8 sets, daily range): BP systolic 100–137; BP diastolic 59–78
[2020-01-16] MEDS: SOD CHL 0.45%/POT CHL 20MEQ 1,000 ML IV SCH ×3 (04:00→20:44)
[2020-01-16 05:23] LABS: BASOPHILS % 0.1 % (0.0-1.0); HEMATOCRIT 43.7 % (38.2-49.6); HEMOGLOBIN 14.9 g/dL (14.0-18.0); LYMPHOCYTES # (AUTO) 2.4 (1.0-3.2); MEAN CORPUSCULAR HEMOGLOBIN 31.2 pg (28-32); MEAN CORPUSCULAR HGB CONC 34.1 g/dL (31-35); MEAN CORPUSCULAR VOLUME 91.4 fL (81-99); MONOCYTES # (AUTO) 0.9 (0.2-0.8); MONOCYTES % 8.2 % (4.4-11.3); NEUTROPHILS # (AUTO) 7.6 (2.1-6.9); NEUTROPHILS % 69.3 % (38.7-80.0); PLATELET COUNT 248 x10e3/uL (140-360); RED BLOOD COUNT 4.78 x10e6/uL (4.3-5.7); RED CELL DISTRIBUTION WIDTH 12.2 % (11.7-14.4)
[2020-01-16 05:42] LABS: ANION GAP 12.1 mmol/L (8-16); BLOOD UREA NITROGEN 12 mg/dL (7-26); BUN/CREATININE RATIO 15 (6-25); CALCIUM 8.3 mg/dL (8.4-10.2); CARBON DIOXIDE 23 mmol/L (22-29); CHLORIDE 107 mmol/L (98-107); EST GLOMERULAR FILTRATION RATE > 60 ML/MIN (60-); GLUCOSE 137 mg/dL (74-118); POTASSIUM 4.1 mmol/L (3.5-5.1); SODIUM 138 mmol/L (136-145)
[2020-01-16] MEDS: CEFTRIAXONE SOD 1 GM/NS 50 ML 50 ML IV SCH (05:48)
[2020-01-16] MEDS: INSULIN LISPRO 100 UNIT/1 ML 3ML VIAL SQ SCH ×4 (07:30→20:28)
[2020-01-16] MEDS: DOCUSATE SODIUM 100 MG CAP PO SCH ×2 (08:15→16:08)
[2020-01-16] MEDS: QUINAPRIL HCL 20 MG TAB PO SCH (08:15)
[2020-01-16] MEDS: TAMSULOSIN HCL 0.4 MG CAP PO SCH (08:15)
[2020-01-16] MEDS: FINASTERIDE 5 MG TAB PO SCH (08:15)
--- NOTE | 2020-01-16 12:18 | Operative Report ---
DATE OF PROCEDURE: 01/15/2020 SURGEON: Wayne Little MD PREOPERATIVE DIAGNOSES: 1. Obstructive benign prostatic hyperplasia. 2. Incomplete bladder emptying. POSTOPERATIVE DIAGNOSES: 1. Obstructive benign prostatic hyperplasia. 2. Incomplete bladder emptying. OPERATION PERFORMED: Of note these are staged procedures, performed for the patient's obstructive BPH and in no way are they related to the patient's previous stone procedures and are not part of their global. 1. Cystourethroscopy with bilateral ureteral catheterization and retrograde ureteropyelography (separate procedure performed to evaluate the upper tract in light of incomplete bladder emptying). 2. Interpretation of retrograde ureteropyelography. 3. Supervision of fluoroscopy, no radiologist present. 4. Cystourethroscopy with transurethral resection of the prostate utilizing the plasma button electrode. ANESTHESIA: General. COMPLICATIONS: None. CLINICAL SUMMARY: Raymond Stockton is a 64-year-old man with severe BPH. The patient underwent UroLift implants. He wanted to try this with seed modality first despite the presence of the median lobe. The patient's result was less than ideal. He still had significant voiding symptomatology. He was brought to the operating room for the above procedures. The patient has had previous lithotripsy for kidney stones or recurrent bilateral kidney stones. He is aware of the risks of bleeding, infection, injury to adjacent structures, incontinence, impotence, retrograde ejaculation, need for additional procedures and he elected to proceed. OPERATIVE PROCEDURE IN DETAIL: Informed consent was verified. Raymond Stockton was properly identified, taken to the operating room, placed on the cystoscopy table in the supine position. Anesthesia was uneventfully begun. The patient was then carefully and gently repositioned in the dorsal lithotomy position with all pressure points well padded. His genitalia were prepared and draped in the usual sterile fashion. The cystoscope sheath with the visual obturator in place was atraumatically inserted into the patient's urethra was guided down the unremarkable urethra through the normal sphincteric region, through the prostate bed, which was significant for trilobar prostatic hypertrophy with kissing lateral lobes and a large intravesical median lobe. There was a small anterior channel that was present and as a result of the UroLift implant, although the UroLift implantation was successful another channel was created, the median lobe negated its benefits. We entered the patient's bladder, panendoscopy revealed grade 2 trabeculation, but no tumors, stones, normally positioned configured ureteral orifices were identified. Ureteral catheter was used to cannulate each ureter and retrograde ureteropyelography was performed. INTERPRETATION OF RETROGRADE URETEROPYELOGRAPHY: Contrast was instilled in retrograde fashion bilaterally. There was there were no obvious stones. There were no obvious filling defects. There was no hydronephrosis. Unobstructed drainage was observed bilaterally fluoroscopically. The resectoscope was atraumatically placed utilizing an obturator. We proceeded with performing transurethral resection of the utilizing the plasma button electrode. The prostate was vaporized first eliminating the median lobe secured to avoid injuring the ureteral orifices. We then vaporized from the bladder neck to maneuver past the verumontanum and down the surgical capsule. As we did this, we released and removed four UroLift implants. This resulted in a wide open prostatic channel. There was blanching and fibrous changes of the prostatic parenchyma consistent with chronic prostatitis. The resectoscope was withdrawn. A continuous irrigation Harris catheter was placed. It was irrigated to and fro to ensure it worked properly. It was placed to continuous bladder irrigation with clear efflux. Belladonna and opium suppository were placed revealing a large 50 g prostate . Explicit postoperative instructions were given. We will keep the patient as an inpatient for continuous bladder irrigation and intravenous antibiotics as well as pain management. Of course ongoing urological followup is a must. Wayne MD Anabel [place]/MODL /[id number] cc: Elie Hayes MD
--- NOTE | 2020-01-16 14:34 | NUR ---
Nutrition Screen Note RD Recommendation for Physician: -Recommend to continue current diet as ordered Plan of Care: RD following, monitoring for tolerance and adequacy Nutrition reason for involvement: Nutrition Risk Trigger Primary Diagnose(s): prostatism PMH: HTN, type 2 DM, dyslipidemia Ht: 65 in Wt:194 lb BMI: 32.3 kg/m2 IBW:[address] Assessment: (01/16/20) Chart reviewed. Labs and meds reviewed. Pt is a 64 year old female admitted with prostatism. Pt reports he is eating all of his meals. No weight loss reported and pt mentioned he usually weighs 193-194 lbs. No N/V/D/C or chewing/swallowing issues. Pt declined the need for diet education. Will continue to monitor Current Diet: 1800 ADA Malnutrition Evaluation (01/16/20) The patient does not meet criteria for a specified degree of malnutrition at this time. Will re-evaluate at follow-up as appropriate. Diet Education Needs Assessment: low Nutrition Care Level: Pt declined the need for diet education Signed: Muna Culp, RD, LD
--- NOTE | 2020-01-16 19:00 | NUR ---
RECEIVED PATIENT IN BEDSIDE SHIFT REPORT. PATIENT RESTING IN BED AT THIS TIME. NO PAIN REPORTED. NO S&S OF DISTRESS NOTED. CBI CLAMPED AT THIS TIME, LIGHT PINK URINE NOTED. PATIENT VERBALIZED HE WOULD CALL IF HE HAD PAIN SO IRRIGATION COULD BE RESTARTED. IV TO R FA 20G ASYMPTOMATIC RUNNING 1/0RK02MWJ @ 125ML/HR. BED LOCKED IN LOWEST POSITION, SIDE RAILS UPX2, CALL LIGHT IN REACH.
[2020-01-16] MEDS ORDERED: ATORVASTATIN 20 MG TAB PO SCH (21:00)
[2020-01-16] MEDS: PHENAZOPYRIDINE HCL 100 MG TAB PO PRN (21:58)
[2020-01-17 00:04] VITALS: BP 116/74
[2020-01-17 05:17] VITALS: BP 124/74
[2020-01-17] MEDS: CEFTRIAXONE SOD 1 GM/NS 50 ML 50 ML IV SCH (05:21)
[2020-01-17] MEDS: SOD CHL 0.45%/POT CHL 20MEQ 1,000 ML IV SCH ×2 (05:21→10:45)
--- NOTE | 2020-01-17 07:00 | NUR ---
ASSUMED CARE. AAOX3. RESTING IN BED. ACYANOTIC. NO DISTRESS NOTED. CALL LIGHT IN REACH. SIDE RAILS UP X2. BED LOW AND LOCKED. INSTRUCTED TO USE CALL LIGHT WHEN ASSISTANCE IS NEEDED. VERBALIZED UNDERSTANDING.
[2020-01-17] MEDS: INSULIN LISPRO 100 UNIT/1 ML 3ML VIAL SQ SCH ×2 (07:30→11:30)
[2020-01-17 08:15] VITALS: BP 136/74
[2020-01-17 08:16] VITALS: BP 136/74
[2020-01-17 08:24] LABS: BASOPHILS % 0.5 % (0.0-1.0); EOSINOPHILS # (AUTO) 0.1 (0.0-0.4); EOSINOPHILS % 1.2 % (0.0-6.0); HEMATOCRIT 43.8 % (38.2-49.6); HEMOGLOBIN 14.9 g/dL (14.0-18.0); LYMPHOCYTES # (AUTO) 3.6 (1.0-3.2); LYMPHOCYTES % 47.1 % (18.0-39.1); MEAN CORPUSCULAR HEMOGLOBIN 31.8 pg (28-32); MEAN CORPUSCULAR VOLUME 93.6 fL (81-99); MONOCYTES # (AUTO) 0.7 (0.2-0.8); MONOCYTES % 9.3 % (4.4-11.3); NEUTROPHILS # (AUTO) 3.2 (2.1-6.9); NEUTROPHILS % 41.8 % (38.7-80.0); PLATELET COUNT 202 x10e3/uL (140-360); RED BLOOD COUNT 4.68 x10e6/uL (4.3-5.7); RED CELL DISTRIBUTION WIDTH 12.5 % (11.7-14.4)
[2020-01-17] MEDS: FINASTERIDE 5 MG TAB PO SCH (08:31)
[2020-01-17] MEDS: DOCUSATE SODIUM 100 MG CAP PO SCH (08:31)
[2020-01-17] MEDS: QUINAPRIL HCL 20 MG TAB PO SCH (08:31)
[2020-01-17] MEDS: TAMSULOSIN HCL 0.4 MG CAP PO SCH (08:31)
[2020-01-17] MEDS: PHENAZOPYRIDINE HCL 100 MG TAB PO PRN (08:35)
[2020-01-17 08:53] LABS: ANION GAP 12.2 mmol/L (8-16); BLOOD UREA NITROGEN 11 mg/dL (7-26); BUN/CREATININE RATIO 14 (6-25); CALCIUM 8.4 mg/dL (8.4-10.2); CARBON DIOXIDE 25 mmol/L (22-29); CHLORIDE 106 mmol/L (98-107); CREATININE, SERUM 0.78 mg/dL (0.72-1.25); EST GLOMERULAR FILTRATION RATE > 60 ML/MIN (60-); GLUCOSE 108 mg/dL (74-118); POTASSIUM 4.2 mmol/L (3.5-5.1); SODIUM 139 mmol/L (136-145)
[2020-01-17 12:28] VITALS: BP 110/85
[2020-01-17] MEDS ORDERED: TYLENOL # 31 EA PO (14:15)
[2020-01-17] MEDS ORDERED: LEVOFLOXACIN250 MG PO (14:16)
== END 2020-01-17 15:09 | disposition home or self-care (01) | DRG 713 ==
LOC: OR 05:34 → PACU V 08:55 → MED/SURG 10:01
PROVIDERS: ADMIT Urology; ATTEND Urology
PROC: 0T788ZZ Dilation of Bilateral Ureters, Via Natural or Artificial Opening Endoscopic (ICD-10-PCS; 2020-01-15)
PROC: 0VT08ZZ Resection of Prostate, Via Natural or Artificial Opening Endoscopic (ICD-10-PCS; principal; 2020-01-15 07:00)
PROC: 0TJB8ZZ Inspection of Bladder, Via Natural or Artificial Opening Endoscopic (ICD-10-PCS; 2020-01-15 07:00)
DX: N40.1 Benign prostatic hyperplasia with lower urinary tract symptoms (principal); N13.8 Other obstructive and reflux uropathy; R33.8 Other retention of urine; R39.14 Feeling of incomplete bladder emptying; I10 Essential (primary) hypertension; E11.9 Type 2 diabetes mellitus without complications; E78.5 Hyperlipidemia, unspecified; Z11.59 Encounter for screening for other viral diseases
CPT/HCPCS: 36415; 74420; 80048; 82948; 83735; 85025; 96361; 96372; C1758; J0696; J1100; J1580; J2001; J2250; J2405; J3010; J7030

== ENCOUNTER → 2020-03-18 | Outpatient (CLI) | payer MEDICARE ==
[~2020-03-18] MED LIST changes: +LEVOFLOXACIN250 MG PO; +TYLENOL # 31 EA PO
== END ==
LOC: RAD 13:43
PROVIDERS: ATTEND Urology
DX: N20.0 Calculus of kidney (principal)
CPT/HCPCS: 74018

== ENCOUNTER → 2020-09-17 | Outpatient (CLI) | payer MEDICARE | LOC: RAD 09:25 | PROVIDERS: ATTEND Urology | DX: N20.0 Calculus of kidney (principal) | CPT/HCPCS: 74018 ==

== ENCOUNTER → 2023-12-14 | Day surgery (SDC) | payer MEDICARE ==
[~2023-12-14] MED LIST changes: +ACETAMINOPHEN 1000 MG/100 ML IV PRN; +ASPIRIN 325 MG TAB PO SCH; +CELECOXIB 100 MG CAP PO SCH; +DIPHENHYDRAMINE HCL INJ 50 MG/ML VIAL IV PRN; +DOCUSATE SODIUM 100 MG CAP PO PRN; +EPINEPHRINE HCL 1:1000 1ML 1 MG/ML AMP ONE; +FENTANYL CITRATE/PF 100MCG/2 ML INJ ONE; +GLYCOPYRROLATE INJ 0.2 MG/ML VIAL ONE; +HYDROCODONE/APAP 5MG-325MG TAB PO PRN; +HYDROCODONE/APAP 7.5MG-325MG 1 EA TAB PO PRN; +HYDROGEN PEROXIDE 120 ML BTL ONE; +KETAMINE 50MG/5ML SYR ONE; +LIDOCAINE HCL 2% LOCAL INJ 5 ML SDV VIAL INJ ONE; +MIDAZOLAM HCL 2 MG/2 ML VIAL ONE; +NEOSTIGMINE 1 MG/ML 10ML VIAL ONE; +OLMESARTAN-HCT1 EAC2 PO; +OMEPRAZOLE40 MG PO; +ONDANSETRON HCL INJ 2MG/ML 2ML 2 MG/ML VIAL IV PRN; +ONDANSETRON HCL INJ 2MG/ML 2ML 2 MG/ML VIAL ONE; +PROPOFOL IV EMULSION 10 MG/ML 20 ML VIAL ONE; +ROCURONIUM BROMIDE 10 MG/ML 5ML VIAL IV ONE; +ROPIVACAINE 0.5% 5 MG/ML 30 ML SDV ONE; +ROPIVACAINE 246.25 MG, EPINEPHRINE HCL 1:1000 1ML 0.5 MG, CLONIDINE HCL 0.08 MG, KETORO... INJ ONE; +ROPIVACAINE/EPI/CLONIDINE/KET 50 ML SYRINGE INJ ONE; +SEVOFLURANE INHAL SOLN 250 ML PEN BTL ONE; +SODIUM CHLORIDE 0.9% 1000ML 1,000 ML IV SCH; +SODIUM CHLORIDE 0.9% 500ML 500 ML ONE; +TRANEXAMIC ACID 20 ML ONE; +Vancomycin IV 500 MG ONE
[2023-12-14] MEDS: GABAPENTIN 300 MG CAP ONE (08:55)
[2023-12-14] MEDS: DEXAMETHASONE SOD PHOS 10 MG/1 ML VIAL ONE (08:55)
[2023-12-14] MEDS: CELECOXIB 200 MG CAP ONE (08:55)
[2023-12-14] MEDS: LACTATED RINGER'S 1,000 ML ONE (08:55)
[2023-12-14] MEDS: CEFAZOLIN SODIUM 2 GM ONE (08:56)
[2023-12-14 16:00] VITALS: BP 122/99; PULSE 79; RESP 16; O2SAT 99
== END | disposition home health service (06) ==
LOC: OR 08:19
PROVIDERS: ATTEND Specialist
DX: M16.11 Unilateral primary osteoarthritis, right hip (principal); I10 Essential (primary) hypertension; E78.5 Hyperlipidemia, unspecified; E11.9 Type 2 diabetes mellitus without complications; Z01.812 Encounter for preprocedural laboratory examination; Z79.84 Long term (current) use of oral hypoglycemic drugs; Z79.899 Other long term (current) drug therapy; Z68.33 Body mass index [BMI] 33.0-33.9, adult
CPT/HCPCS: 27130; 36415; 72170; 82948; 86850; 86900; 97110; 97116; 97161; 97530; C1713 ×2; C1776 ×3; J0171; J0690; J1100; J2001; J2250; J2405; J2704; J2710; J2795; J3010; J3370; J7040; J7121; J1885

== ENCOUNTER → 2024-12-11 | Outpatient (REF) | payer MEDICARE ==
[~2024-12-11] MED LIST changes: -ACETAMINOPHEN 1000 MG/100 ML IV PRN; -ASPIRIN 325 MG TAB PO SCH; +B12 ACTIVE1000 MCG PO; -CELECOXIB 100 MG CAP PO SCH; -DIPHENHYDRAMINE HCL INJ 50 MG/ML VIAL IV PRN; -DOCUSATE SODIUM 100 MG CAP PO PRN; -EPINEPHRINE HCL 1:1000 1ML 1 MG/ML AMP ONE; -FENTANYL CITRATE/PF 100MCG/2 ML INJ ONE; -GLYCOPYRROLATE INJ 0.2 MG/ML VIAL ONE; -HYDROCODONE/APAP 5MG-325MG TAB PO PRN; -HYDROCODONE/APAP 7.5MG-325MG 1 EA TAB PO PRN; -HYDROGEN PEROXIDE 120 ML BTL ONE; -KETAMINE 50MG/5ML SYR ONE; +LANSOPRAZOLE30 MG PO; -LIDOCAINE HCL 2% LOCAL INJ 5 ML SDV VIAL INJ ONE; -MIDAZOLAM HCL 2 MG/2 ML VIAL ONE; -NEOSTIGMINE 1 MG/ML 10ML VIAL ONE; -ONDANSETRON HCL INJ 2MG/ML 2ML 2 MG/ML VIAL IV PRN; -ONDANSETRON HCL INJ 2MG/ML 2ML 2 MG/ML VIAL ONE; +OSTEO BI-FLEX1 EAC4; +OZEMPIC0.25 MG/02 SC; -PROPOFOL IV EMULSION 10 MG/ML 20 ML VIAL ONE; -ROCURONIUM BROMIDE 10 MG/ML 5ML VIAL IV ONE; -ROPIVACAINE 0.5% 5 MG/ML 30 ML SDV ONE; -ROPIVACAINE 246.25 MG, EPINEPHRINE HCL 1:1000 1ML 0.5 MG, CLONIDINE HCL 0.08 MG, KETORO... INJ ONE; -ROPIVACAINE/EPI/CLONIDINE/KET 50 ML SYRINGE INJ ONE; -SEVOFLURANE INHAL SOLN 250 ML PEN BTL ONE; -SODIUM CHLORIDE 0.9% 1000ML 1,000 ML IV SCH; -SODIUM CHLORIDE 0.9% 500ML 500 ML ONE; -TRANEXAMIC ACID 20 ML ONE; +VITAMIN C1000 MG PO; +VITAMIN D3 COM1 EACH PO; -Vancomycin IV 500 MG ONE
== END ==
LOC: RAD 13:01
PROVIDERS: ATTEND Family Medicine
DX: Z01.810 Encounter for preprocedural cardiovascular examination (principal)
CPT/HCPCS: 71046; 93005

== ENCOUNTER → 2024-12-26 | Day surgery (SDC) | payer MEDICARE ==
[~2024-12-26] MED LIST changes: +ACETAMINOPHEN 1000 MG/100 ML 100 ML IV ONE; +ACETAMINOPHEN 1000 MG/100 ML IV PRN; +ASPIRIN 325 MG TAB PO SCH; +ASPIRIN81 MG PO; +CEFAZOLIN SODIUM 2 GM ONE; +CELECOXIB 100 MG CAP PO SCH; +CELECOXIB 200 MG CAP ONE; +DEXAMETHASONE 10MG/ML PF INJ ONE; +DIPHENHYDRAMINE HCL INJ 50 MG/ML VIAL IV PRN; +DOCUSATE SODIUM 100 MG CAP PO PRN; +FENTANYL CITRATE/PF 100MCG/2 ML INJ ONE; +GABAPENTIN 300 MG CAP ONE; +HYDROCODONE/APAP 5MG-325MG TAB PO PRN; +HYDROCODONE/APAP 7.5MG-325MG 1 EA TAB PO PRN; +HYDROMORPHONE 2MG/ML ONE; +LACTATED RINGER'S 1,000 ML ONE; +LIDOCAINE HCL 2% LOCAL INJ 5 ML SDV VIAL INJ ONE; +MIDAZOLAM HCL 2 MG/2 ML VIAL ONE; +ONDANSETRON HCL INJ 2MG/ML 2ML 2 MG/ML VIAL IV PRN; +ONDANSETRON HCL INJ 2MG/ML 2ML 2 MG/ML VIAL ONE; +PHENYLEPHRINE HCL 1% 10 MG/ML VIAL ONE; +PROPOFOL IV EMULSION 10 MG/ML 20 ML VIAL ONE; +ROCURONIUM BROMIDE 1 ML IV ONE; +ROPIVACAINE/EPI/CLONIDINE/KET 50 ML SYRINGE INJ ONE; +SEVOFLURANE INHAL SOLN 250 ML PEN BTL ONE; +SODIUM CHLORIDE 0.9% 1000ML 1,000 ML IV SCH; +SUGAMMADEX SODIUM 200 MG/2 ML VIAL IV ONE
[2024-12-26 11:44] VITALS: TEMP 97.4
[2024-12-26] MEDS: FENTANYL CITRATE/PF 100MCG/2 ML INJ ONE (12:00)
[2024-12-26 13:30] VITALS: BP 128/77; PULSE 71; RESP 16; O2SAT 97
== END | disposition home health service (06) ==
LOC: OR 07:46
PROVIDERS: ATTEND Specialist
DX: M16.12 Unilateral primary osteoarthritis, left hip (principal); E11.9 Type 2 diabetes mellitus without complications; I10 Essential (primary) hypertension; E78.5 Hyperlipidemia, unspecified; K21.9 Gastro-esophageal reflux disease without esophagitis; E66.01 Morbid (severe) obesity due to excess calories; Z01.812 Encounter for preprocedural laboratory examination; Z79.82 Long term (current) use of aspirin; Z79.85 Long-term (current) use of injectable non-insulin antidiabetic drugs; Z79.84 Long term (current) use of oral hypoglycemic drugs; Z79.899 Other long term (current) drug therapy
CPT/HCPCS: 27130; 36415; 72170; 82948; 86850; 86900; 97116; 97161; C1713; C1776 ×3; J0131; J1171; J2003; J2250; J2371; J2405; J2704; J3010; J7121